=== PATIENT | male | born 1960 | race Caucasian/White ===

== ENCOUNTER 2017-09-15 09:52 | Emergency (ER) | payer OTHER, MEDICAID ==
[~2017-09-15] VITALS: Ht 170.2 cm; Wt 72.6 kg
[2017-09-15 10:27] VITALS: Ht 170.2 cm; Wt 72.6 kg
[2017-09-15 13:59] VITALS: BP 133/76
== END 2017-09-15 13:59 | disposition home or self-care (01) ==
LOC: ED 09:52
DX: S93.402A Sprain of unspecified ligament of left ankle, initial encounter (principal); I10 Essential (primary) hypertension; W19.XXXA Unspecified fall, initial encounter; Y93.89 Activity, other specified; Y92.89 Other specified places as the place of occurrence of the external cause; Y99.8 Other external cause status
CPT/HCPCS: Q0092

== ENCOUNTER 2017-10-09 09:59 | Emergency (ER) | payer OTHER, MEDICAID ==
[~2017-10-09] VITALS: Ht 170.2 cm; Wt 74.8 kg
[2017-10-09 10:10] VITALS: BP 118/83; Ht 170.2 cm; Wt 74.8 kg
== END 2017-10-09 12:33 | disposition home or self-care (01) ==
LOC: ED 09:59
DX: S93.601A Unspecified sprain of right foot, initial encounter (principal); X50.1XXA Overexertion from prolonged static or awkward postures, initial encounter; Y93.89 Activity, other specified; Y92.22 Religious institution as the place of occurrence of the external cause; Y99.8 Other external cause status
CPT/HCPCS: Q0092